=== PATIENT | male | born 1955 | race African-American/Black ===

== ENCOUNTER 2022-05-02 04:53 | Emergency (ER) | payer SELFPAY ==
[2022-05-02 05:03] VITALS: BMI 31.8
[2022-05-02 06:47] VITALS: BP 123/80; PULSE 98; TEMP 97.9
[2022-05-02 06:47] LABS: BASO % 0.5 % (0-2.0); HEMATOCRIT 35.8 % (35.4-49); HEMOGLOBIN 12.2 GM/dL (11.7-16.9); LYMPH % 45.8 % (8-40); MCH 30.3 pg (25.7-33.7); MCHC 34.1 g/dl (32.0-35.9); MEAN CELL VOLUME 88.9 fl (80-96); MEAN PLT VOLUME 7.6 fl (7.5-11.1); MONO % 10.1 % (3.8-10.2); NEUT % 40.6 % (42.8-82.8); PLATELET COUNT 347 10^3/uL (134-434); RBC 4.02 M/mm3 (4.00-5.60); RDW 15.2 % (11.9-15.9); WHITE BLOOD COUNT 8.1 K/mm3 (4.0-10.0)
[2022-05-02 06:54] LABS: INR 1.02 (0.83-1.09); PROTHROMBIN TIME (PATIENT) 11.7 SEC (9.7-13.0)
[2022-05-02 06:57] LABS: ACTIVATED PTT 26.1 SECONDS (25.2-36.5)
[2022-05-02 07:14] LABS: ALBUMIN 3.8 g/dl (3.4-5.0); BLOOD UREA NITROGEN 10.7 mg/dL (7-18); CALCIUM 8.9 mg/dL (8.5-10.1)
[2022-05-02 07:17] LABS: CREATININE 1.1 mg/dL (0.55-1.3)
[2022-05-02 07:19] LABS: BILIRUBIN,TOTAL 0.4 mg/dL (0.2-1); TOT PROT 6.4 g/dl (6.4-8.2)
== END 2022-05-02 06:45 | disposition short-term general hospital (02) ==
LOC: JER 04:53
PROC: 093K7ZZ Control Bleeding in Nasal Mucosa and Soft Tissue, Via Natural or Artificial Opening (ICD-10-PCS; principal; 2022-05-02)
DX: R04.0 Epistaxis (principal)
CPT/HCPCS: 36415; 80053; 84484; 85025; 85610; 85730; 86850; 86900; 86901; 93005; 93010; 99285-25